=== PATIENT | male | born 1960 | race American Indian/Alaskan Native ===

== ENCOUNTER 2019-01-19 12:28 | Emergency (ER) | payer MEDICAID ==
[2019-01-19] MEDS ORDERED: ASPIRIN PO ONE (14:16)
[2019-01-19 14:41] LABS: Hematocrit 43.7 % (35.5-45.6); Hemoglobin 14.9 gm/dl (11.8-15.2); Mean Corpuscular HGB Conc 34 % (32-34); Mean Corpuscular Volume 98 fl (84-94); Platelet Count 155 K/mm3 (140-440); Red Blood Count 4.46 M/mm3 (3.65-5.03); Red Cell Distribution Width 13.6 % (13.2-15.2)
[2019-01-19 15:08] LABS: BUN/Creatinine Ratio 12; Blood Urea Nitrogen 11 mg/dL (9-20); Calcium 8.7 mg/dL (8.4-10.2); Hemolysis Index 2
[2019-01-19] MEDS ORDERED: NACL 0.9% 1000 ML 1,000 ML IV ONE (15:41)
[2019-01-19] MEDS ORDERED: TORADOL IV ONE (15:41)
[2019-01-19] MEDS ORDERED: NORCO 5/325 PO ONE (15:41)
[2019-01-19] MEDS ORDERED: TESSALON PERLES PO ONE (15:41)
[2019-01-19 15:44] LABS: Basophils % (Manual) 0 % (0.0-1.8); RBC Morphology Normal; Total Cells Counted 100
[2019-01-19] MEDS ORDERED: ZITHROMAX PO ONE (16:10)
[2019-01-19] MEDS ORDERED: SOLU-Medrol IV ONE (16:10)
[2019-01-19] MEDS ORDERED: DUONEB *Not for PRN Use IH ONE ×2 (16:10→16:11)
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
--- NOTE | 2019-01-19 16:34 | XRay Report ---
PROCEDURE: XR CHEST ROUTINE 2V TECHNIQUE: Frontal and lateral views of the chest HISTORY: cough, cp COMPARISONS: None. FINDINGS: Cardiomediastinal silhouette is normal in appearance. The lungs are clear without focal consolidation. No pleural effusion or pneumothorax. No acute bony or soft tissue abnormality. IMPRESSION: No acute cardiopulmonary disease. This document is electronically signed by Deborah Crooks MD., January 19 2019 04:32:08 PM ET
[2019-01-19 18:15] VITALS: BP 116/67
== END 2019-01-19 23:00 | disposition home or self-care (01) ==
LOC: ED 12:28
DX: J20.8 Acute bronchitis due to other specified organisms (principal); F17.200 Nicotine dependence, unspecified, uncomplicated; F12.10 Cannabis abuse, uncomplicated; Z79.899 Other long term (current) drug therapy
CPT/HCPCS: 36415; 71046; 80048; 84484; 85007; 85025; 93005; 93010; 94640; 96374; 96375; 99285; J1885; J2930; J7030

== ENCOUNTER 2021-01-18 10:30 | Emergency (ER) | payer MEDICAID ==
[2021-01-18] MEDS ORDERED: oxyCODONE /ACETAMINOPHEN 5-325MG TAB PO ONE (11:17)
[2021-01-18] MEDS ORDERED: BENZONATATE 100 MG CAP PO ONE (11:17)
[2021-01-18] MEDS ORDERED: IPRATROPIUM 0.02% NEBU 2.5 ML IH ONE (11:18)
[2021-01-18] MEDS ORDERED: ALBUTEROL 2.5 MG/3 ML NEBU IH ONE (11:18)
[2021-01-18] MEDS ORDERED: methylPREDNISolone Sod Succinate 125 MG/2 ML INJ IV ONE (11:18)
[2021-01-18] MEDS ORDERED: KETOROLAC 30 MG/1 ML INJ IV ONE (11:23)
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
[2021-01-18 11:41] LABS: Eosinophils # (Auto) 0.1 K/mm3 (0.0-0.4); Eosinophils % (Auto) 3.7 % (0.0-4.3); Hematocrit 44.6 % (35.5-45.6); Hemoglobin 15.4 gm/dl (11.8-15.2); Lymphocytes # (Auto) 1.1 K/mm3 (1.2-5.4); Lymphocytes % (Auto) 35.4 % (13.4-35.0); Mean Corpuscular HGB Conc 35 % (32-34); Mean Corpuscular Volume 99 fl (84-94); Monocytes # (Auto) 0.5 K/mm3 (0.0-0.8); Monocytes % (Auto) 15.3 % (0.0-7.3); Platelet Count 193 K/mm3 (140-440); Red Blood Count 4.52 M/mm3 (3.65-5.03)
[2021-01-18 11:56] LABS: BUN/Creatinine Ratio 16; Blood Urea Nitrogen 13 mg/dL (9-20); Calcium 9.2 mg/dL (8.4-10.2); Hemolysis Index 4
--- NOTE | 2021-01-18 12:03 | XRay Report ---
CHEST 1 VIEW INDICATION: cough. COMPARISON: None available. FINDINGS: Support devices: None. Heart: Normal. Lungs/Pleura: No acute pulmonary or pleural findings. IMPRESSION: 1. No acute findings. Signer Name: Patel Choe MD Signed: 01/18/2021 11:58 AM Workstation Name: [id number]
--- NOTE | 2021-01-18 12:14 | Electrocardiograph Report ---
[facility] Test Date: 2021-01-18 Test Time: 10:56:36 Pat Name: JOSE SU Department: Room: Gender: M Ict Teacher: NUNU : 1960 Requested By: ANANTH SANZ Order Number: [id number] Reading MD: Willy Ji Measurements Intervals [place] Rate: 81 P: 76 NH: 130 QRS: 72 QRSD: 95 T: 69 QT: 381 QTc: 443 Interpretive Statements Sinus rhythm RSR' IN V1 OR V2, PROBABLY NORMAL VARIANT No previous ECG available for comparison Electronically Signed On 01-18-2021 12:14:38 EDT by Willy Ji
[2021-01-18 12:34] VITALS: BP 124/90
[2021-01-18] MEDS ORDERED: AZITHROMYCIN 250 MG TAB PO ONE (12:44)
== END 2021-01-18 13:44 | disposition home or self-care (01) ==
LOC: ED 10:30
DX: J44.9 Chronic obstructive pulmonary disease, unspecified (principal); F17.200 Nicotine dependence, unspecified, uncomplicated; Z79.899 Other long term (current) drug therapy
CPT/HCPCS: 36415; 71045; 80048; 84484; 85025; 93005; 94640; 96374; 96375; 99284; J1885; J2930; 94644